=== PATIENT | female | born 1990 ===

== ENCOUNTER 2021-07-23 18:59 | Emergency (ER) | payer SELFPAY | END 2021-07-23 20:17 | disposition left against medical advice (07) | LOC: ED 18:59 | DX: M25.579 Pain in unspecified ankle and joints of unspecified foot (principal); Z53.21 Procedure and treatment not carried out due to patient leaving prior to being seen by health care provider; X50.1XXA Overexertion from prolonged static or awkward postures, initial encounter; Y93.89 Activity, other specified; Y92.89 Other specified places as the place of occurrence of the external cause; Y99.8 Other external cause status ==